=== PATIENT | male | born 1955 | race Caucasian/White ===

== ENCOUNTER 2020-05-13 14:23 | Observation (INO) ==
[2020-05-13] MEDS ORDERED: ASPIRIN 81 MG TAB.CHEW PO ONE (15:02)
--- NOTE | 2020-05-13 15:05 | ERNOTE ---
Chest Pain/Cardiac HPI Date of Service: 05/13/20 Chief Complaint: Chest Pain Time Seen by Provider: 05/13/20 14:37 Source: patient, RN notes reviewed, past records Exam Limitations: no limitations Immunizations: IMMUNIZATION HX Immunizations Up to Date Yes History of Influenza Vaccine Yes Hx Pneumococcal Vaccination Yes Allergies/Adverse Reactions: Allergies No Known Allergies Allergy (Verified 03/28/20 08:18) Home Medications: HOME MEDICATIONS Multivitamins [Multivitamin Lg] 1 cap PO DAILY 08/22/13 [Last Taken Unknown] [place]-3 Fatty Acids/Fish Oil [Fish Oil 1,200 mg Softgel] 1 ea PO DAILY 08/22/13 [Last Taken Unknown] aspirin 81 mg tablet,delayed release 81 mg PO DAILY 08/04/18 [Last Taken Unknown] nitroglycerin 0.4 mg sublingual tablet 0.4 mg SUBLINGUAL PRN PRN #30 tab 03/06/20 [Last Taken Unknown] Lisinopril [Prinivil] 10 mg PO DAILY 05/13/20 [Last Taken Unknown] Lovastatin 80 mg PO DAILY 05/13/20 [Last Taken Unknown] Metoprolol Tartrate 50 mg PO BID 05/13/20 [Last Taken Unknown] glipiZIDE [Glipizide] 20 mg PO DAILY 05/13/20 [Last Taken Unknown] metFORMIN HCL [Metformin HCl] 1,000 mg PO BID 05/13/20 [Last Taken Unknown] Narrative: Oleg is a 64-year-old male who presents to the emergency department for chest pain. He was at work a short while ago when he experienced sharp pain in his left chest. He reports having 2 or 3 stabbing pains that were brief in nature. He then sat down and reports that his vision became fuzzy. He took 2 nitroglycerin and then states that he felt better. It seems as though his pain had actually resolved before he took the nitroglycerin. He states that he was feeling well earlier today. He was active at the time he began having chest pain but was not exerting himself. He has a history of a triple bypass in 2010 and then a non-STEMI in the placement of 2 stents in 2018. Timing: resolved prior to arrival Chest Pain Radiation: no radiation Activities at Onset: activity Nitro Today/Relief: 0.4 mg x 2, provided at home, complete relief Aspirin Treatment Today: 81 mg x 1 - this morning Associated Symptoms: Absent: cough, shortness of breath, fever/chills, nausea Prior Chest Pain/Cardiac Workup: Reports: prior chest pain, heart attack Prior Treatment: Denies: recently seen Review of Systems - Review of Systems Constitutional: Absent: recent illness, fever, chills, malaise EYE: Absent: eye pain, eye discharge ENT: Present: no symptoms reported Respiratory: Absent: shortness of breath, cough Cardiology: Absent: palpitations, syncope, edema Gastrointestinal/Abdominal: Absent: nausea, vomiting, abdominal pain Genitourinary: Present: no symptoms reported Musculoskeletal: Absent: muscle pain, joint pain Skin: Absent: rash, lesions Neurological: Absent: headache, dizziness/light-headedness Endocrine: Present: no symptoms reported Hematologic/Lymphatic: Absent: easy bruising, easy bleeding Psych: Present: no symptoms reported Medical History (Last Reviewed 05/13/20 @ 16:32 by Kita Mckeon NP) NSTEMI (non-ST elevated myocardial infarction) (Resolved) Onset Date: Unknown Hypertension (Chronic) Onset Date: Unknown Hypercholesteremia (Chronic) Onset Date: Unknown Type 2 diabetes mellitus (Chronic) Onset Date: Unknown Coronary artery disease (Chronic) Onset Date: Unknown Surgical History: Surgical History (Last Reviewed 05/13/20 @ 16:32 by Kita Mckeon NP) History of colonoscopy Onset Date: ~2013 Dr Baker-hyperplastic polyp. Recheck in 10 years. History of vasectomy Onset Date: ~1991 S/P triple vessel bypass Onset Date: ~2009 Stented coronary artery Onset Date: ~2017 Right coronary stent. SVG OM Family History: Family History (Last Reviewed 05/13/20 @ 16:32 by Kita Mckeon NP) Mother Hypertension Father Hypertension Brother Hypertension Brain tumor Social History: (Last Reviewed 05/13/20 @ 16:32 by Kita Mckeon NP) Social History: adopted: No foster care: No care home: No Marital status: Unknown lives independently: No number of children: 2 caregiver/support person: No current occupational status: employed Highest education level completed: Associate degree: [employer] Service: No Tobacco: Smoking Status: Former smoker Alcohol: alcohol intake: current Substance Use: substance use type: does not use Dietary Habits: caffeine: Yes Physical Exam - Physical Exam General Appearance: Present: wd/wn, alert, no apparent distress, cheerful Head Exam: Present: normal inspection Eye Exam: Normal inspection: bilateral Neck: Present: normal inspection, nontender, supple, full range of motion Respiratory: Present: no respiratory distress, normal breath sounds, no accessory muscle use, lungs clear Cardiovascular/Chest: Present: regular rate, rhythm, no murmur, normal peripheral pulses Extremity Exam: Present: normal inspection, no edema Neurological Exam: Present: alert, oriented, normal mood/affect, no motor/sensory deficits Skin Exam: Present: normal color, warm/dry Progress - Results and Orders Patient's Lab Results:: I have reviewed the patient's lab results. - Vital Signs Patient's Vital Signs:: I have reviewed the patient's vital signs. Vital Signs: Vital Signs 05/13/20 14:28 Temperature 36.0 C Pulse Rate 70 Respiratory Rate 16 Blood Pressure 150/75 H O2 Sat by Pulse Oximetry 98 - EKG EKG #1 EKG: NSR, nonspecific ST T wave changes EKG read: Reviewed by me - X-Ray X-Ray #1 X-Ray: chest Interpretation: Reviewed by me X-ray Comments: 2 VIEW CHEST Comparison: 10/19/2017, 07/23/2017 Technique: Upright frontal and lateral views of the chest were obtained. Findings: The cardiac silhouette is borderline in size. There is been a previous median sternotomy. The mediastinum and hilum are with in normal limits. Again seen is pleural thickening along left and right hemithoraces. The lung poole are clear. I do not see evidence for an infiltrate, effusion or pulmonary edema. The prior surgery in the anterior medial upper outer quadrant. IMPRESSION: 1. PREVIOUS MEDIAN STERNOTOMY. 2. NO ACUTE CARDIOPULMONARY PROCESS. Electronically signed by Oleg Seth M.D.. - Progress/Reassessment Chief Complaint: Chest Pain Progress:: Pain free at discharge Plan - Plan Plan: The patient has had no further chest pain while in the ED. His EKG was without acute findings and troponin was normal. Due to his cardiac history, I contacted Dr. Jauregui and she agreed to admit the patient to observation. Departure Clinical Impression: Chest pain, rule out acute myocardial infarction - Departure Disposition: Still a patient Condition: Stable
[2020-05-13 15:20] LABS: Hemoglobin 14.6 gm/dL (13.5-18.0); Mean Cell Volume 88.1 fl (78-100); Mean Corpuscular Hemoglobin 29.9 pg (27-31); Mean Platelet Volume 10.8 fl (8-11.3); Neutrophil # 5.5 K/mm3 (1.3-6.0); Neutrophil % 64.1 % (42-75.0); Platelet Count 216 K/mm3 (150-450); Red Blood Count 4.88 M/mm3 (4.7-6.0); Red Cell Distribution Width 12.4 % (11.5-14.0); White Blood Count 8.6 K/mm3 (4.0-10.5)
[2020-05-13 15:45] LABS: ALT 25 U/L (19-67); AST 16 U/L (0-48); Albumin * 3.7 gm/dl (3.4-5.0); Alkaline Phosphatase * 72 U/L (50-170); Anion Gap 13.5 mmol/L (6.8-13.8); BUN/Creatinine Ratio 15.6 (9.0-21.6); Bilirubin, Total 0.5 mg/dL (0.0-1.1); Blood Urea Nitrogen 20 mg/dL (6-23); Ca. Corrected For Albumin 9.5 mg/dL (8.4-10.2); Calcium * 9.6 mg/dL (7.9-10.9); Carbon Dioxide 25.7 mmol/L (24-32.6); Chloride 101 mmol/L (97-106); Glucose * 375 mg/dL (70-110); Potassium 5.2 mmol/L (3.4-4.6); Sodium 135 mmol/L (132-142); Total Protein 7.8 gm/dL (6.2-8.2)
[2020-05-13 15:46] LABS: Troponin I Less than 0.017 ng/mL (0.00-0.10)
[2020-05-13] MEDS ORDERED: NITROGLYCERIN 0.4 MG/TAB BTL SL PRN (17:36)
--- NOTE | 2020-05-13 17:36 | HP ---
Chief Complaint - Chief Complaint Date of Service: 05/13/20 Time of Service: 16:18 Chief Complaint: Chest pain x1 day History of Present Illness: 64-year-old male with a past medical history of coronary artery disease, hypertension, hyperlipidemia, type 2 diabetes mellitus, and STEMI and multiple stent placement presents from work with left-sided chest pain. He states he had 2 episodes that lasted a few seconds while he was working. Chest pain resolved on its own. He took 2 doses of nitroglycerin after the pain had resolved. He decided to come to the emergency room due to his medical history. In the ER he was found to have stable vitals, negative troponin and EKG, elevated blood sugar 375. He is being admitted for chest pain observation. Medical History (Last Reviewed 05/13/20 @ 16:32 by Kita Mckeon NP) NSTEMI (non-ST elevated myocardial infarction) (Resolved) Onset Date: Unknown Hypertension (Chronic) Onset Date: Unknown Hypercholesteremia (Chronic) Onset Date: Unknown Type 2 diabetes mellitus (Chronic) Onset Date: Unknown Coronary artery disease (Chronic) Onset Date: Unknown Surgical History: Surgical History (Last Reviewed 05/13/20 @ 16:32 by Kita Mckeon NP) History of colonoscopy Onset Date: ~2013 Dr Baker-hyperplastic polyp. Recheck in 10 years. History of vasectomy Onset Date: ~1991 S/P triple vessel bypass Onset Date: ~2009 Stented coronary artery Onset Date: ~2017 Right coronary stent. SVG OM Family History: Family History (Last Reviewed 05/13/20 @ 16:32 by Kita Mckeon NP) Mother Hypertension Father Hypertension Brother Hypertension Brain tumor Social History: (Last Reviewed 05/13/20 @ 16:32 by Kita Mckeon NP) Social History: adopted: No foster care: No care home: No Marital status: Unknown lives independently: No number of children: 2 caregiver/support person: No current occupational status: employed Highest education level completed: Associate degree: [employer] Service: No Tobacco: Smoking Status: Former smoker Alcohol: alcohol intake: current Substance Use: substance use type: does not use Dietary Habits: caffeine: Yes Review Of Systems (GEN) - Review of Systems Generalized/Overall Review: Absent: Chills, Fever Respiratory: Absent: Shortness of Breath Cardiac: Present: Chest Pain Abdominal: Absent: Abdominal Pain Misc: All systems neg except as marked Immunizations: IMMUNIZATION HX Immunizations Up to Date Yes History of Influenza Vaccine Yes Hx Pneumococcal Vaccination Yes Allergies/Adverse Reactions: Allergies Allergy/AdvReac Type Severity Reaction Status Date / Time No Known Allergies Allergy Verified 03/28/20 08:18 Home Medications: HOME MEDICATIONS Multivitamins [Multivitamin Lg] 1 cap PO DAILY 08/22/13 [Last Taken Unknown] [place]-3 Fatty Acids/Fish Oil [Fish Oil 1,200 mg Softgel] 1 ea PO DAILY 08/22/13 [Last Taken Unknown] aspirin 81 mg tablet,delayed release 81 mg PO BID 08/04/18 [Last Taken Unknown] nitroglycerin 0.4 mg sublingual tablet 0.4 mg SUBLINGUAL PRN PRN #30 tab 03/06/20 [Last Taken Unknown] Lisinopril [Prinivil] 10 mg PO DAILY 05/13/20 [Last Taken Unknown] Lovastatin 80 mg PO HS 05/13/20 [Last Taken Unknown] Metoprolol Tartrate 50 mg PO BID 05/13/20 [Last Taken Unknown] glipiZIDE [Glipizide] 20 mg PO DAILY 05/13/20 [Last Taken Unknown] metFORMIN HCL [Metformin HCl] 1,000 mg PO BID 05/13/20 [Last Taken Unknown] Exam - Exam Vital Signs: Vital Signs - Last Taken Temp 36.2 C 05/13/20 16:54 Pulse 54 L 05/13/20 16:54 Resp 16 05/13/20 16:54 BP 120/71 05/13/20 16:54 Pulse Ox 100 05/13/20 16:54 Constitutional: Present: Alert, Oriented x3, Cooperative, Well developed, Well nourished, No distress, Middle aged ENT Exam: Present: hearing grossly normal, moist mucous membranes Eye Exam: bilateral eye: normal inspection, PERRL, EOMI Neck: Present: non-tender, supple. Absent: lymphadenopathy (R), lymphadenopathy (L) Back Exam: Present: normal inspection, no CVA tenderness, no vertebral tenderness Respiratory: Present: chest non-tender, lungs clear, no respiratory distress, no accessory muscle use, No wheezing. Absent: rhonchi, wheezing Cardiovascular/Chest: Present: normal peripheral pulses, regular rate, rhythm, no edema, no murmur Peripheral Pulses: dorsalis-pedis (R): 1+, dorsalis-pedis (L): 1+ Abdomen: Present: Normal bowel sounds, soft, nontender Extremity: Present: non-tender, no pedal edema Skin Exam: Present: normal color, warm/dry Neurologic: Present: alert, normal mood/affect Appearance: Present: appropriate appearance, appropriate insight Eye contact: Present: cooperative Thoughts: Present: normal thought pattern, normal mood /affect Diagnostic Studies: Abnormal Lab Results 05/13/20 05/13/20 Range/Units 15: 15:12 Eosinophils % 3.3 H (0.0-3.0) % Potassium 5.2 H (3.4-4.6) mmol/L Random Glucose 375 H (70-110) mg/dL Laboratory Results WBC 8.6 K/mm3 (4.0-10.5) 05/13/20 15:12 RBC 4.88 M/mm3 (4.7-6.0) 05/13/20 15:12 Hgb 14.6 gm/dL (13.5-18.0) 05/13/20 15:12 Hct 43.0 % (42.0-52.0) 05/13/20 15:12 MCV 88.1 fl (78-100) 05/13/20 15:12 MCH 29.9 pg (27-31) 05/13/20 15:12 MCHC 34.0 g/dl (32-36) 05/13/20 15:12 RDW 12.4 % (11.5-14.0) 05/13/20 15:12 Plt Count 216 K/mm3 (150-450) 05/13/20 15:12 MPV 10.8 fl (8-11.3) 05/13/20 15:12 Immature Gran % (Auto) 0.40 % (0.001-0.429) 05/13/20 15:12 Immature Gran # (Auto) 0.03 K/mm3 (0.000-0.0310) 05/13/20 15:12 Neutrophils % 64.1 % (42-75.0) 05/13/20 15:12 Lymphocytes % 24.0 % (20-51) 05/13/20 15:12 Monocytes % 7.7 % (0.0-9) 05/13/20 15:12 Eosinophils % 3.3 % (0.0-3.0) H 05/13/20 15:12 Basophils % 0.5 % (0.0-1.0) 05/13/20 15:12 Nucleated RBC % 0.0 k/mm3 (0-1) 05/13/20 15:12 Neutrophils # 5.5 K/mm3 (1.3-6.0) 05/13/20 15:12 Lymphocytes # 2.06 k/mm3 (1.5-3.5) 05/13/20 15:12 Monocytes # 0.7 k/mm3 (0.0-1.0) 05/13/20 15:12 Eosinophils # 0.3 k/mm3 (0.0-0.7) 05/13/20 15:12 Absolute Basophils 0.0 k/mm3 (0.0-0.1) 05/13/20 15:12 Sodium 135 mmol/L (132-142) 05/13/20 15:12 Plasma Sodium 139 mmol/L (130-142) 05/13/20 15:12 Potassium 5.2 mmol/L (3.4-4.6) H 05/13/20 15:12 Chloride 101 mmol/L (97-106) 05/13/20 15:12 Carbon Dioxide 25.7 mmol/L (24-32.6) 05/13/20 15:12 Anion Gap 13.5 mmol/L (6.8-13.8) 05/13/20 15:12 BUN 20 mg/dL (6-23) 05/13/20 15:12 Creatinine 1.28 mg/dL (0.4-1.4) 05/13/20 15:12 Est GFR (Non-Af Amer) 61 mL/min (60-130) D 05/13/20 15:12 BUN/Creatinine Ratio 15.6 (9.0-21.6) 05/13/20 15:12 Random Glucose 375 mg/dL (70-110) H 05/13/20 15:12 Calcium 9.6 mg/dL (7.9-10.9) 05/13/20 15:12 Calcium Adj for Albumin 9.5 mg/dL (8.4-10.2) 05/13/20 15:12 Total Bilirubin 0.5 mg/dL (0.0-1.1) 05/13/20 15:12 AST 16 U/L (0-48) 05/13/20 15:12 ALT 25 U/L (19-67) 05/13/20 15:12 Alkaline Phosphatase 72 U/L (50-170) 05/13/20 15:12 Troponin I Less than 0.017 ng/mL (0.00-0.10) 05/13/20 15:12 Total Protein 7.8 gm/dL (6.2-8.2) 05/13/20 15:12 Albumin 3.7 gm/dl (3.4-5.0) 05/13/20 15:12 Assessment/Plan - Narrative Narrative: 64-year-old male with a past medical history of coronary artery disease, hypertension, hyperlipidemia, type 2 diabetes mellitus, and STEMI and multiple stent placement presents from work with left-sided chest pain. He states he had 2 episodes that lasted a few seconds while he was working. Chest pain resolved on its own. He took 2 doses of nitroglycerin after the pain had resolved. He decided to come to the emergency room due to his medical history. In the ER he was found to have stable vitals, negative troponin and EKG, elevated blood sugar 375. He is being admitted for chest pain observation. Plan #1 Continue trending troponin #2 continue with telemetry #3 CBC and CMP in the morning #4 resume home medications #5 diabetic diet - Assessment/Plan (1) Chest pain, rule out acute myocardial infarction Problem: Acute (2) Hypertension Problem: Chronic Qualifiers: (3) Hypercholesteremia Problem: Chronic (4) Type 2 diabetes mellitus Problem: Chronic Qualifiers:
[2020-05-13] MEDS: METOPROLOL TARTRATE 50 MG TABLET PO SCH (20:51)
[2020-05-13] MEDS: ASPIRIN 81 MG TABLET.DR PO SCH (20:51)
[2020-05-13] MEDS ORDERED: ROSUVASTATIN CALCIUM 10 MG TABLET PO SCH (21:00)
[2020-05-14 06:19] LABS: Hematocrit 45.5 % (42.0-52.0); Hemoglobin 15.3 gm/dL (13.5-18.0); Mean Cell Volume 90.1 fl (78-100); Mean Corpuscular Hemoglobin 30.3 pg (27-31); Mean Corpuscular Hgb Conc 33.6 g/dl (32-36); Mean Platelet Volume 10.7 fl (8-11.3); Neutrophil # 5.3 K/mm3 (1.3-6.0); Neutrophil % 57.1 % (42-75.0); Platelet Count 200 K/mm3 (150-450); Red Blood Count 5.05 M/mm3 (4.7-6.0); Red Cell Distribution Width 12.5 % (11.5-14.0); White Blood Count 9.3 K/mm3 (4.0-10.5)
[2020-05-14 06:33] LABS: Albumin * 3.6 gm/dl (3.4-5.0); Anion Gap 12.8 mmol/L (6.8-13.8); Bilirubin, Total 0.6 mg/dL (0.0-1.1); Ca. Corrected For Albumin 9.4 mg/dL (8.4-10.2); Calcium * 9.4 mg/dL (7.9-10.9); Carbon Dioxide 26.5 mmol/L (24-32.6); Potassium 4.3 mmol/L (3.4-4.6); Total Protein 7.8 gm/dL (6.2-8.2)
[2020-05-14] MEDS: METOPROLOL TARTRATE 50 MG TABLET PO SCH (08:31)
[2020-05-14] MEDS: ASPIRIN 81 MG TABLET.DR PO SCH (08:31)
[2020-05-14] MEDS ORDERED: MULTIVITAMINS 1 CAP CAPSULE PO SCH (09:00)
[2020-05-14] MEDS ORDERED: glipiZIDE 10 MG TABLET PO SCH (09:00)
[2020-05-14] MEDS ORDERED: OMEGA-3 FATTY ACIDS 1 CAP CAPSULE PO SCH (09:00)
[2020-05-14] MEDS ORDERED: LISINOPRIL 10 MG TABLET PO SCH (09:00)
--- NOTE | 2020-05-14 10:24 | DS ---
(1) Chest pain, rule out acute myocardial infarction Problem: Acute (2) Hypertension Problem: Chronic Qualifiers: Hypertension type: essential hypertension (3) Hypercholesteremia Problem: Chronic (4) Type 2 diabetes mellitus Problem: Chronic Qualifiers: Hospital Course: 64-year-old male with a past medical history of coronary artery disease, hypertension, hyperlipidemia, type 2 diabetes mellitus, and STEMI and multiple stent placement presents from work with left-sided chest pain. He states he had 2 episodes that lasted a few seconds while he was working. Chest pain resolved on its own. He took 2 doses of nitroglycerin after the pain had resolved. He decided to come to the emergency room due to his medical history. In the ER he was found to have stable vitals, negative troponin and EKG, elevated blood sugar 375. He is being admitted for chest pain observation. He had no chest pain throughout his hospitalization. Repeat troponin was also negative. He is doing well today and is stable for discharge home. He will follow-up with his PCP in the next 1 to 2 weeks. Procedures Performed: none Results and Findings: Lab Pending Results 05/13/20 15:12: WBC 8.6, RBC 4.88, Hgb 14.6, Hct 43.0, MCV 88.1, MCH 29.9, MCHC 34.0, RDW 12.4, Plt Count 216, MPV 10.8, Immature Gran % (Auto) 0.40, Immature Gran # (Auto) 0.03, Neutrophils % 64.1, Lymphocytes % 24.0, Monocytes % 7.7, Eosinophils % 3.3 H, Basophils % 0.5, Nucleated RBC % 0.0, Neutrophils # 5.5, Lymphocytes # 2.06, Monocytes # 0.7, Eosinophils # 0.3, Absolute Basophils 0.0 05/13/20 15:12: Sodium 135, Plasma Sodium 139, Potassium 5.2 H, Chloride 101, Carbon Dioxide 25.7, Anion Gap 13.5, BUN 20, Creatinine 1.28, Est GFR (Non-Af Amer) 61 D, BUN/Creatinine Ratio 15.6, Random Glucose 375 H, Calcium 9.6, Calcium Adj for Albumin 9.5, Total Bilirubin 0.5, AST 16, ALT 25, Alkaline Phosphatase 72, Troponin I Less than 0.017, Total Protein 7.8, Albumin 3.7 05/13/20 21:05: Troponin I Less than 0.017 05/14/20 06:15: WBC 9.3, RBC 5.05, Hgb 15.3, Hct 45.5, MCV 90.1, MCH 30.3, MCHC 33.6, RDW 12.5, Plt Count 200, MPV 10.7, Immature Gran % (Auto) 0.20, Immature Gran # (Auto) 0.02, Neutrophils % 57.1, Lymphocytes % 29.4, Monocytes % 8.8, Eo sinophils % 3.9 H, Basophils % 0.6, Nucleated RBC % 0.0, Neutrophils # 5.3, Lymphocytes # 2.72, Monocytes # 0.8, Eosinophils # 0.4, Absolute Basophils 0.1 05/14/20 06:15: Sodium 139, Plasma Sodium 140, Potassium 4.3, Chloride 104, Carbon Dioxide 26.5, Anion Gap 12.8, BUN 17, Creatinine 1.06, Est GFR (Non-Af Amer) 75 D, BUN/Creatinine Ratio 16.0, Random Glucose 179 H D, Calcium 9.4, Calcium Adj for Albumin 9.4, Total Bilirubin 0.6, AST 15, ALT 23, Alkaline Phosphatase 68, Total Protein 7.8, Albumin 3.6 Discharge Location: Home Disposition: Home self-care Condition: Stable Discharge Activity: Activity as tolerated Discharge Diet: Consistent carbs, Low salt, Low fat/chol Referrals: Darcy Duarte FNP [Family Provider] - Complete Home Medications List: Complete Home Medication List: Multivitamins [Multivitamin Lg] 1 cap PO DAILY 08/22/13 [place]-3 Fatty Acids/Fish Oil [Fish Oil 1,200 mg Softgel] 1 ea PO DAILY 08/22/13 aspirin 81 mg tablet,delayed release 81 mg PO BID 08/04/18 nitroglycerin 0.4 mg sublingual tablet 0.4 mg SUBLINGUAL PRN PRN #30 tab 03/06/20 Lisinopril [Prinivil] 10 mg PO DAILY 05/13/20 Lovastatin 80 mg PO HS 05/13/20 Metoprolol Tartrate 50 mg PO BID 05/13/20 glipiZIDE [Glipizide] 20 mg PO DAILY 05/13/20 metFORMIN HCL [Metformin HCl] 1,000 mg PO BID 05/13/20
[2020-05-14 10:38] VITALS: BP 133/74
== END 2020-05-14 11:08 | disposition home or self-care (01) ==
LOC: MS 14:23 → ER 14:23 → MS 16:54
PROVIDERS: ADMIT Internal Medicine; ATTEND Internal Medicine